=== PATIENT | female | born 1975 | race Caucasian/White ===

== ENCOUNTER → 2024-05-16 12:15 | Outpatient (REF) | payer OTHER, SELFPAY | LOC: HWWDC 12:15 | PROVIDERS: ATTENDING PHYSICIAN Nurse Practitioner Family | DX: Z12.31 Encounter for screening mammogram for malignant neoplasm of breast (principal); E04.1 Nontoxic single thyroid nodule | CPT/HCPCS: 76536; 77063; 77067 ==